=== PATIENT | female | born 1980 ===

== ENCOUNTER 2017-04-28 08:54 | Day surgery (SDC) | payer MEDICAID ==
[2017-04-22 14:22] VITALS: BMI 26.6
[2017-04-28 09:53] LABS: BASO # 0.03 K/mm3 (0.0-2.0); BASO % 0.5 % (0.0-3.0); EOS # 0.3 (0.0-0.7); EOS % 4.4 % (1.5-5.0); GRAN # 3.05 (1.4-6.5); GRAN % 54.1 % (50.0-68.0); HEMATOCRIT 38.9 % (36.0-48.0); LYMPH # 1.9 (1.2-3.4); LYMPH % 32.9 % (22.0-35.0); MEAN CELL VOLUME 94.9 fl (80.0-105.0); MEAN CORPUSCULAR HEMOGLOBIN 31.7 pg (25.0-35.0); MEAN CORPUSCULAR HGB CONC 33.4 g/dl (31.0-37.0); MEAN PLATELET VOLUME 10.8 fl (7.0-11.0); MONO # 0.5 (0.1-0.6); MONO % 8.1 % (1.0-6.0); RED CELL DISTRIBUTION WIDTH 12.5 % (11.5-14.5); WHITE BLOOD COUNT 5.7 10^3/ul (4.5-11.0)
[2017-04-28 10:00] LABS: ALB/GLOB RATIO 1.2 (1.1-1.8); ALKALINE PHOSPHATASE 46 U/L (38-126); ALT/SGPT 38 U/L (7-56); AST/SGOT 31 U/L (14-36); BILIRUBIN,TOTAL 0.6 mg/dL (0.2-1.3); BLOOD UREA NITROGEN 10 mg/dL (7-21); CALCIUM 9.5 mg/dL (8.4-10.5); CARBON DIOXIDE 26 mmol/L (21-33); CHLORIDE 106 mmol/L (98-107); GFR AFRICAN-AMERICAN > 60; GLUCOSE,RANDOM 85 mg/dL (70-110); POTASSIUM 4.1 mmol/L (3.6-5.0); SODIUM 140 mmol/L (132-148); TOTAL PROTEIN 7.6 g/dL (5.8-8.3)
[2017-04-28 10:07] LABS: INR 1.13 (0.93-1.08); PARTIAL THROMBOPLASTIN TIME 32.3 Seconds (25.1-36.5)
[2017-04-28] MEDS ORDERED: Sodium Chloride 0.9% 1,000 ML IV SCH (10:30)
[2017-04-28] MEDS ORDERED: Midazolam 2 MG/2 ML VIAL ONE (10:51)
[2017-04-28] MEDS ORDERED: Propofol 10 mg/ml Inj (20 ML) ONE ×2 (10:51→11:28)
[2017-04-28] MEDS ORDERED: Simethicone 40 mg/0.6 ml Liquid (30 ml) ONE (11:53)
[2017-04-28 12:49] VITALS: BP 112/68; PULSE 51; RESP 16; TEMP 98.4; O2SAT 100
== END 2017-04-28 13:59 | disposition home or self-care (01) ==
LOC: ENDO 08:54
PROVIDERS: ATTEND Internal Medicine
DX: K29.50 Unspecified chronic gastritis without bleeding (principal); K31.9 Disease of stomach and duodenum, unspecified
CPT/HCPCS: 36415; 43236; 43239; 43254; 43259; 80053; 84703; 85025; 85610; 85730; 88305; 88342; J2250; J2704; J3010; J7040 ×2

== ENCOUNTER 2017-04-28 17:32 | Inpatient (IN) | payer MEDICAID ==
[2017-04-28 17:32] VITALS: BMI 26.6
[2017-04-28] MEDS ORDERED: Morphine 4 mg/ml ISec IVP STA (17:54)
[2017-04-28] MEDS ORDERED: Sodium Chloride 0.9% 1,000 ML IV STA (17:55)
--- NOTE | 2017-04-28 18:11 | ED PDOC ---
Arrival/HPI - General Chief Complaint: Abdominal Pain Time Seen by Provider: 04/28/17 17:35 - History of Present Illness Narrative History of Present Illness (Text): 04/28/17 17:50 A 37 year old female, whose past medical history includes AVN, lupus, and gastritis, presents to the emergency department post endoscopy, for epigastric pain and vomiting. The patient reports she has abdominal swelling, epigastric cramping, and has had 3 episodes of vomiting. She denies any dysuria, bloody stools, chest pain, or any other complaints at this time. LMP: 04/08/17 Time/Duration: 4-6 hours Symptom Onset: Other Symptom Course: Unchanged Quality: Cramping, Burning Severity Level: Mild Activities at Onset: Significant (endoscopy) Context: Other (post endoscopy) Past Medical History - Provider Review Nursing Documentation Reviewed: Yes - Infectious Disease Hx of Infectious Diseases: None - Tetanus Immunization Tetanus Immunization: Unknown - Cardiac Hx Pacemaker: No - Pulmonary Hx Respiratory Disorders: No - Neurological Hx Paralysis: No - HEENT Hx HEENT Disorder: No - Renal Hx Renal Disorder: No - Endocrine/Metabolic Hx Endocrine Disorders: Yes Hx Systemic Lupus Erythematosus: Yes Other/Comment: "inflamed thryroid" - Hematological/Oncological Hx Blood Transfusions: No - Integumentary Hx Dermatological Disorder: No - Musculoskeletal/Rheumatological Hx Musculoskeletal Disorders: Yes - Gastrointestinal Hx Gastrointestinal Disorders: Yes Hx Gall Bladder Disease: Yes (gallstones) - Genitourinary/Gynecological Hx Genitourinary Disorders: Yes Hx Cervical Cancer: Yes - Psychiatric Hx Emotional Abuse: No Hx Physical Abuse: No Hx Substance Use: No - Past Surgical History Past Surgical History: No Previous - Surgical History Hx Appendectomy: Yes Hx Cholecystectomy: Yes - Anesthesia Hx Anesthesia Reactions: No Hx Malignant Hyperthermia: No - Suicidal Assessment Feels Threatened In Home Enviroment: No Family/Social History - Physician Review Nursing Documentation Reviewed: Yes Family/Social History: No Known Family HX Smoking Status: Never Smoked Hx Alcohol Use: No Hx Substance Use: No Hx Substance Use Treatment: No Allergies/Home Meds Allergies/Adverse Reactions: Allergies No Known Allergies Allergy (Verified 07/09/16 18:50) Home Medications: Home Meds Medication Instructions Recorded Confirmed Hydroxychloroquine Sulfate 200 mg PO BID 01/08/16 04/28/17 [Plaquenil] Omeprazole 40 mg PO DAILY 04/22/17 04/28/17 Review of Systems - Physician Review All systems were reviewed & negative as marked: Yes - Review of Systems Cardiovascular: absent: Chest Pain Gastrointestinal: Abdominal Pain, Vomiting Genitourinary Female: absent: Dysuria Physical Exam Vital Signs Reviewed: Yes Vital Signs Temp Pulse Resp BP Pulse Ox 04/28/17 17:53 98.2 F 92 H 19 139/95 H 100 04/28/17 17:52 98.2 F 92 H 18 139/95 H 100 Temperature: Afebrile Blood Pressure: Hypertensive Pulse: Tachycardic Respiratory Rate: Normal Appearance: Positive for: Non-Toxic Pain Distress: Moderate Mental Status: Positive for: Alert and Oriented X 3 - Systems Exam Head: Present: Atraumatic, Normocephalic Pupils: Present: PERRL Conjunctiva: Present: Normal Mouth: Present: Moist Mucous Membranes Pharnyx: Present: Normal. No: ERYTHEMA, EXUDATE Neck: Present: Normal Range of Motion Respiratory/Chest: Present: Clear to Auscultation, Good Air Exchange. No: Respiratory Distress, Accessory Muscle Use Cardiovascular: Present: Regular Rate and Rhythm, Normal S1, S2. No: Murmurs Abdomen: Present: Tenderness (mild epigastric tenderness), Distention (mild distention ), Normal Bowel Sounds. No: Peritoneal Signs Back: Present: Normal Inspection Upper Extremity: Present: Normal Inspection. No: Cyanosis, Edema Lower Extremity: Present: Normal Inspection. No: Edema Neurological: Present: GCS=15, CN II-XII Intact, Speech Normal Skin: Present: Warm, Dry, Normal Color. No: Rashes Psychiatric: Present: Alert, Oriented x 3, Normal Insight, Normal Concentration , Anxious Medical Decision Making ED Course and Treatment: 04/28/17 18:18 Impression: A 37 year old female post endoscopy. Differential Diagnosis included but are not limited to: perforation vs gastritis vs gas Plan: -- Ab & Pel CT -- Labs -- Morphine, Zofran, Protonix, IV Fluids -- test -- Urinalysis -- Reassess and disposition Progress Notes: 04/28/17 19:36 Patient with noted history. Labs are nondiagnostic. CT is nondiagnostic with no evidence of perforation. Patient seen by Dr. Lilly in the Emergency department, requiring iv narcotic for pain control. Will observe for abdominal pain on med-surg. Discussed with hospitalist, Dr. Morrison. - Lab Interpretations Lab Results: 04/28/17 18:11 04/28/17 18:11 Lab Results 04/28/17 18:35: Urine Color Yellow, Urine Appearance Clear, Urine pH 6.5, Ur Specific [place] >= 1.030, Urine Protein Trace H, Urine Glucose (UA) Negative, Urine Ketones Negative, Urine Blood Moderate H, Urine Nitrate Negative, Urine Bilirubin Negative, Urine Urobilinogen 0.2, Ur Leukocyte Esterase Negative, Urine RBC 5 - 10, Urine WBC 2 - 5, Ur Epithelial Cells 4 - 5, Urine Bacteria Rare 04/28/17 18:11: Sodium 140, Potassium 3.8, Chloride 103, Carbon Dioxide 28, Anion Gap 13, BUN 10, Creatinine 0.6 L, Est GFR ( Amer) > 60, Est GFR ( Non-Af Amer) > 60, Random Glucose 107, Calcium 9.6, Total Bilirubin 0.6, AST 30 , ALT 41, Alkaline Phosphatase 52, Total Protein 8.0, Albumin 4.4, Globulin 3.6 , Albumin/Globulin Ratio 1.2, Lipase 42 04/28/17 18:11: PT 12.5, INR 1.14 H, APTT 35.2 04/28/17 18:11: WBC 8.7 D, RBC 4.31, Hgb 14.0, Hct 40.8, MCV 94.7, MCH 32.5, MCHC 34.3, RDW 12.3, Plt Count 227, MPV 10.8, Gran % 74.4 H, Lymph % (Auto) 16.4 L, [place] % (Auto) 7.3 H, Eos % (Auto) 1.6, Baso % (Auto) 0.3, Gran # 6.49, Lymph # 1.4, [place] # 0.6, Eos # 0.1, Baso # 0.03 - RAD Interpretation Radiology Orders: 04/28/17 17:48 ABD & PELVIS W/O PO OR IV CONT [CT] Stat - Medication Orders Current Medication Orders: Discontinued Medications Sodium Chloride (Sodium Chloride 0.9%) 1,000 mls @ 999 mls/hr IV .Q1H1M STA Stop: 04/28/17 18:55 Last Admin: 04/28/17 18:19 Dose: 999 mls/hr eMAR Start Stop Document 04/28/17 18:19 MS (Rec: 04/28/17 18:20 MS [id number]) Intravenous Solution Start Date 04/28/17 Start Time 18:19 End Date 04/28/17 End time 19:19 Total Infusion Time 60 Morphine Sulfate (Morphine) 4 mg IVP STAT STA Stop: 04/28/17 17:55 Last Admin: 04/28/17 18:20 Dose: 4 mg MAR Pain Assessment Document 04/28/17 18:20 MS (Rec: 04/28/17 18:21 MS [id number]) Pain Reassessment Is this a pain reassessment? No Sleep Is patient sleeping during reassessment? No Presence of Pain Presence of Pain Yes Pain Scale Used Pain Scale Used Numeric Location Pain Location Body Site Abdomen Description Description Constant Intensity of Pain at present 8 Pain Behavior Moaning Guarding Withdrawal from Touch Refusal to Eat Aggravating Factors Changing Position Alleviating Factors/Management Medication Techniques IVP Administration Document 04/28/17 18:20 MS (Rec: 04/28/17 18:21 MS [id number]) Charges for Administration # of IVP Administrations 1 Ondansetron HCl (Zofran Inj) 4 mg IVP STAT STA Stop: 04/28/17 17:55 Last Admin: 04/28/17 18:21 Dose: 4 mg IVP Administration Document 04/28/17 18:21 MS (Rec: 04/28/17 18:21 MS [id number]) Charges for Administration # of IVP Administrations 1 Pantoprazole Sodium (Protonix Inj) 40 mg IVP STAT STA Stop: 04/28/17 17:55 Last Admin: 04/28/17 18:21 Dose: 40 mg IVP Administration Document 04/28/17 18:21 MS (Rec: 04/28/17 18:21 MS [id number]) Charges for Administration # of IVP Administrations 1 - Scribe Statement The provider has reviewed the documentation as recorded by the Sandy Araiza Provider Scribe Attestation: All medical record entries made by the Scribe were at my direction and personally dictated by me. I have reviewed the chart and agree that the record accurately reflects my personal performance of the history, physical exam, medical decision making, and the department course for this patient. I have also personally directed, reviewed, and agree with the discharge instructions and disposition. Disposition/Present on Arrival - Present on Arrival Any Indicators Present on Arrival: No History of DVT/PE: No History of Uncontrolled Diabetes: No Urinary Catheter: No History of Decub. Ulcer: No History Surgical Site Infection Following: None - Disposition Have Diagnosis and Disposition been Completed?: Yes Diagnosis: Intractable abdominal pain Disposition: HOSPITALIZED Disposition Time: 18:50 Patient Plan: Observation Condition: FAIR Forms: [employer] (Uzbek)
[2017-04-28 18:21] LABS: BASO # 0.03 K/mm3 (0.0-2.0); BASO % 0.3 % (0.0-3.0); EOS # 0.1 (0.0-0.7); EOS % 1.6 % (1.5-5.0); GRAN # 6.49 (1.4-6.5); GRAN % 74.4 % (50.0-68.0); HEMATOCRIT 40.8 % (36.0-48.0); LYMPH # 1.4 (1.2-3.4); LYMPH % 16.4 % (22.0-35.0); MEAN CELL VOLUME 94.7 fl (80.0-105.0); MEAN CORPUSCULAR HEMOGLOBIN 32.5 pg (25.0-35.0); MEAN CORPUSCULAR HGB CONC 34.3 g/dl (31.0-37.0); MEAN PLATELET VOLUME 10.8 fl (7.0-11.0); MONO # 0.6 (0.1-0.6); MONO % 7.3 % (1.0-6.0); RED CELL DISTRIBUTION WIDTH 12.3 % (11.5-14.5); WHITE BLOOD COUNT 8.7 10^3/ul (4.5-11.0)
[2017-04-28 18:34] LABS: ALB/GLOB RATIO 1.2 (1.1-1.8); ALKALINE PHOSPHATASE 52 U/L (38-126); ALT/SGPT 41 U/L (7-56); AST/SGOT 30 U/L (14-36); BILIRUBIN,TOTAL 0.6 mg/dL (0.2-1.3); BLOOD UREA NITROGEN 10 mg/dL (7-21); CALCIUM 9.6 mg/dL (8.4-10.5); CARBON DIOXIDE 28 mmol/L (21-33); CHLORIDE 103 mmol/L (98-107); GFR AFRICAN-AMERICAN > 60; GLUCOSE,RANDOM 107 mg/dL (70-110); INR 1.14 (0.93-1.08); LIPASE 42 U/L (23-300); PARTIAL THROMBOPLASTIN TIME 35.2 Seconds (25.1-36.5); POTASSIUM 3.8 mmol/L (3.6-5.0); SODIUM 140 mmol/L (132-148)
[2017-04-28 18:48] LABS: PH,URINE 6.5 (4.7-8.0); URINE BILIRUBIN NEGATIVE (NEGATIVE); URINE BLOOD MODERATE (NEGATIVE); URINE GLUCOSE (UA) NEGATIVE (NEGATIVE); URINE KETONE NEGATIVE (NEGATIVE); URINE LEUKOCYTE ESTERASE NEGATIVE Leu/uL (NEGATIVE); URINE PROTEIN TRACE mg/dL (<30 mg/dL); URINE UROBILINOGEN 0.2 E.U./dL (<1 E.U./dL)
[2017-04-28 18:50] LABS: URINE APPEARANCE CLEAR (CLEAR); URINE COLOR YELLOW (YELLOW)
--- NOTE | 2017-04-28 18:55 | CT ---
PROCEDURE: CT Abdomen and Pelvis without intravenous contrast HISTORY: abd pain post EGD - r/o perforation COMPARISON: Comparison is made to the previous study dated 01/08/2016 TECHNIQUE: Axial and reformatted coronal and sagittal CT images of the abdomen and pelvis were obtained without IV or oral contrast administration.. Contrast Dose: 0 Radiation dose: Total exam DLP = mGy-cm. This CT exam was performed using one or more of the following dose reduction techniques: Automated exposure control, adjustment of the mA and/or kV according to patient size, and/or use of iterative reconstruction technique. FINDINGS: LOWER THORAX: Unremarkable. LIVER: No evidence of acute pathology in the liver. GALLBLADDER AND BILE DUCTS: Status post cholecystectomy. PANCREAS: Unremarkable. No gross lesion or ductal dilatation. SPLEEN: Unremarkable. ADRENALS: Unremarkable. No mass. KIDNEYS AND URETERS: 2 millimeter calcification noted at the lower pole of the right kidney may represent nonobstructing calculus versus cortical calcification. No hydronephrosis. No solid mass. VASCULATURE: Unremarkable. No aortic aneurysm. BOWEL: Unremarkable. No obstruction. No gross mural thickening. Linear high attenuation noted in the mid to distal stomach likely represent clips from recent biopsy. APPENDIX: Unremarkable. Normal appendix. PERITONEUM: No evidence of free air of free fluid in the abdomen. There is a trace amount of free fluid in the pelvis likely physiological. LYMPH NODES: Unremarkable. No enlarged lymph nodes. BLADDER: Unremarkable. REPRODUCTIVE: The uterus is slightly prominent in size and heterogeneous. BONES: No acute fracture. OTHER FINDINGS: None. IMPRESSION: No evidence of free air in the abdomen and pelvis to suggest bowel perforation. Trace amount of free fluid in the pelvis could be physiological. 2 millimeter nonobstructing calculi versus cortical calcification at the lower pole right kidney.
[2017-04-28 18:58] LABS: URINE BACTERIA RARE (NEG)
--- NOTE | 2017-04-28 19:39 | CP.PCM.CON ---
History of Present Illness - History of Present Illness History of Present Illness: CC: Abdominal pain HPI: 37 year old female who presents with abdominal pain. She underwent EGD/EUS/ EMR today for evaluation of gastric subepithelial nodule. After procedure, she had mild epigastric pain. Her abdominal exam was benign at the time. She received tylenol. She felt a bit better. She ate and was discharged. This afternoon, the pain increased and became more severe, 10/10, with radiation to the back. She also had associated wretching. She denies fever. No bleeding or hematemesis. No chest pain or sob. PMHx Dyspepsia PSHx EGD with EMR Fhx no familiy history of GI cancer SHx non-smoker/drinker/drug user ROS A comprehensive review of systems was performed and was negative apart from HPI Past Patient History - Infectious Disease Hx of Infectious Diseases: None - Tetanus Immunizations Tetanus Immunization: Unknown - Past Social History Smoking Status: Never Smoked - CARDIAC Hx Pacemaker: No - PULMONARY Hx Respiratory Disorders: No - NEUROLOGICAL Hx Paralysis: No - HEENT Hx HEENT Problems: No - RENAL Hx Chronic Kidney Disease: No - ENDOCRINE/METABOLIC Hx Endocrine Disorders: Yes Hx Systemic Lupus Erythematosus: Yes Other/Comment: "inflamed thryroid" - HEMATOLOGICAL/ONCOLOGICAL Hx Blood Transfusions: No - INTEGUMENTARY Hx Dermatological Problems: No - MUSCULOSKELETAL/RHEUMATOLOGICAL Hx Musculoskeletal Disorders: Yes - GASTROINTESTINAL Hx Gastrointestinal Disorders: Yes Hx Gall Bladder Disease: Yes (gallstones) - GENITOURINARY/GYNECOLOGICAL Hx Genitourinary Disorders: Yes Hx Cervical Cancer: Yes - PSYCHIATRIC Hx Emotional Abuse: No Hx Physical Abuse: No Hx Substance Use: No - SURGICAL HISTORY Hx Appendectomy: Yes Hx Cholecystectomy: Yes - ANESTHESIA Hx Anesthesia Reactions: No Hx Malignant Hyperthermia: No Meds Allergies/Adverse Reactions: Allergies Allergy/AdvReac Type Severity Reaction Status Date / Time No Known Allergies Allergy Verified 07/09/16 18:50 Physical Exam - Constitutional Appears: In Acute Distress Additional comments: appears uncomfortable/in pain - Head Exam Head Exam: ATRAUMATIC, NORMOCEPHALIC - Eye Exam Eye Exam: Normal appearance. absent: Scleral icterus Pupil Exam: PERRL - ENT Exam ENT Exam: Mucous Membranes Moist, Normal Oropharynx - Neck Exam Neck exam: Negative for: Lymphadenopathy, Thyromegaly - Respiratory Exam Respiratory Exam: Clear to Auscultation Bilateral, NORMAL BREATHING PATTERN. absent: Rhonchi, Wheezes, Stridor - Cardiovascular Exam Cardiovascular Exam: REGULAR RHYTHM, +S1, +S2 - GI/Abdominal Exam GI & Abdominal Exam: Distended, Soft, Tenderness. absent: Firm, Guarding - Extremities Exam Extremities exam: Positive for: normal capillary refill. Negative for: calf tenderness, pedal edema - Neurological Exam Neurological exam: Alert, Oriented x3 - Psychiatric Exam Psychiatric exam: Normal Affect, Normal Mood - Skin Skin Exam: Dry, Warm Results - Vital Signs Recent Vital Signs: Last Vital Signs Temp 98.2 F 04/28/17 17:53 Pulse 92 H 04/28/17 17:53 Resp 19 04/28/17 17:53 BP 139/95 H 04/28/17 17:53 Pulse Ox 100 04/28/17 17:53 - Labs Result Diagrams: 04/28/17 18:11 04/28/17 18:11 Labs: Laboratory Results - last 24 hr 04/28/17 04/28/17 04/28/17 18:11 18:11 18:11 WBC 8.7 D RBC 4.31 Hgb 14.0 Hct 40.8 MCV 94.7 MCH 32.5 MCHC 34.3 RDW 12.3 Plt Count 227 MPV 10.8 Gran % 74.4 H Lymph % (Auto) 16.4 L [place] % (Auto) 7.3 H Eos % (Auto) 1.6 Baso % (Auto) 0.3 Gran # 6.49 Lymph # 1.4 [place] # 0.6 Eos # 0.1 Baso # 0.03 PT 12.5 INR 1.14 H APTT 35.2 Sodium 140 Potassium 3.8 Chloride 103 Carbon Dioxide 28 Anion Gap 13 BUN 10 Creatinine 0.6 L Est GFR ( Amer) > 60 Est GFR (Non-Af Amer) > 60 Random Glucose 107 Calcium 9.6 Total Bilirubin 0.6 AST 30 ALT 41 Alkaline Phosphatase 52 Total Protein 8.0 Albumin 4.4 Globulin 3.6 Albumin/Globulin Ratio 1.2 Lipase 42 Urine Color Urine Appearance Urine pH Ur Specific [place] Urine Protein Urine Glucose (UA) Urine Ketones Urine Blood Urine Nitrate Urine Bilirubin Urine Urobilinogen Ur Leukocyte Esterase Urine RBC Urine WBC Ur Epithelial Cells Urine Bacteria 04/28/17 18:35 WBC RBC Hgb Hct MCV MCH MCHC RDW Plt Count MPV Gran % Lymph % (Auto) [place] % (Auto) Eos % (Auto) Baso % (Auto) Gran # Lymph # [place] # Eos # Baso # PT INR APTT Sodium Potassium Chloride Carbon Dioxide Anion Gap BUN Creatinine Est GFR ( Amer) Est GFR (Non-Af Amer) Random Glucose Calcium Total Bilirubin AST ALT Alkaline Phosphatase Total Protein Albumin Globulin Albumin/Globulin Ratio Lipase Urine Color Yellow Urine Appearance Clear Urine pH 6.5 Ur Specific [place] >= 1.030 Urine Protein Trace H Urine Glucose (UA) Negative Urine Ketones Negative Urine Blood Moderate H Urine Nitrate Negative Urine Bilirubin Negative Urine Urobilinogen 0.2 Ur Leukocyte Esterase Negative Urine RBC 5 - 10 Urine WBC 2 - 5 Ur Epithelial Cells 4 - 5 Urine Bacteria Rare Assessment & Plan - Assessment and Plan (Free Text) Assessment: 37 year old female with gastric nodule s/p EMR today presenting with abdominal pain. 1. Abdominal pain 2. 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 where a transmural burn from the resection is causing peritoneal irritation -alternatively there could be a microperforation not detected on imaging -the defect was completely close with a resoltion clip during the case and the clip appears to be in place on CT -would recommend admission for monitoring -would start IV antibiotics to cover gram negatives/anaerobes, such as zosyn or ceftriaxone/flagyl -recommend protonix 40 mg IV BID -NPO for now -pain meds with IV morphine -antiemetics as needed -await pathology from procedure, suspect carcinoid tumor -when she is feeling better, would add carafate oral solution 1 g PO QID when she can take liquids, maybe tomorrow -will follow - Date & Time Date: 04/28/17 Time: 19:38
[2017-04-28] MEDS ORDERED: Morphine 4 mg/ml ISec IVP PRN (19:58)
--- NOTE | 2017-04-28 20:43 | CP.PCM.HP ---
<Juwan Martines - Last Filed: 04/28/17 22:46> History of Present Illness - History of Present Illness History of Present Illness: Juwan Martines DO PGY1 - Internal Medicine H&P CC: Abdominal pain HPI: 37 yo F with PMH lupus, AVN right hip, cervical dysplasia s/p conization, gastric ulcers, gastric nodule s/p EUS and endoscopic mucosal resection earlier today presents complaining of epigastric pain radiating to mid back. Earlier today, she had EGD, EUS, and mucosal resection biopsy of a gastric nodule, with placement of one endoclip for hemostasis. After the procedure, she had some mild abdominal pain, which improved slightly with Tylenol. She was able to eat a bread roll before she went home, without any worsening abdominal pain, nausea , or vomiting. When she got home, she tried to drink some water and then developed a sharp epigastric pain radiating to her mid back, 10/10 in severity, lasting 3-4 seconds, occuring every few minutes, worsened with movement, without any particular remitting factors. She reports that she has had this pain before, since before July of this year, though not as severe. Of note, in July, patient reports having had an EGD which showed ulceration, for which she completed a course of "1-2 weeks of medicine". She was also given a PPI which she has been taking, but only for the past couple weeks. Currently, she reports no change in her abdominal pain since it began; she did have one episode of nausea/vomiting NBNB after the onset of the pain, when she tried to drink water. She endorses hunger/a normal appetite, but is worried about eating anything, denies nausea, diarrhea, constipation, hematemesis, hemoptysis, melena , fevers, chills. She did have one normal, formed bowel movement since the procedure today. 12 point ROS negative except as in HPI PMH: Lupus (2013), cervical dysplasia (2004), Gastric ulcers (07/2016), ANV right hip PSH: Cholecystectomy, Colposcopy with conization (2004) FHx: Lung CA in grandfather, Breast CA in grandmother, DM in both parents Soc: Prior smoker, quit 6 years ago, 2 PYH; denies alcohol or illicits All: NKDA Present on Admission - Present on Admission Any Indicators Present on Admission: No Past Patient History - Infectious Disease Hx of Infectious Diseases: None - Tetanus Immunizations Tetanus Immunization: Unknown - Past Social History Smoking Status: Never Smoked - CARDIAC Hx Pacemaker: No - PULMONARY Hx Respiratory Disorders: No - NEUROLOGICAL Hx Paralysis: No - HEENT Hx HEENT Problems: No - RENAL Hx Chronic Kidney Disease: No - ENDOCRINE/METABOLIC Hx Endocrine Disorders: Yes Hx Systemic Lupus Erythematosus: Yes Other/Comment: "inflamed thryroid" - HEMATOLOGICAL/ONCOLOGICAL Hx Blood Transfusions: No - INTEGUMENTARY Hx Dermatological Problems: No - MUSCULOSKELETAL/RHEUMATOLOGICAL Hx Musculoskeletal Disorders: Yes - GASTROINTESTINAL Hx Gastrointestinal Disorders: Yes Hx Gall Bladder Disease: Yes (gallstones) - GENITOURINARY/GYNECOLOGICAL Hx Genitourinary Disorders: Yes Hx Cervical Cancer: Yes - PSYCHIATRIC Hx Emotional Abuse: No Hx Physical Abuse: No Hx Substance Use: No - SURGICAL HISTORY Hx Appendectomy: Yes Hx Cholecystectomy: Yes - ANESTHESIA Hx Anesthesia Reactions: No Hx Malignant Hyperthermia: No Meds Allergies/Adverse Reactions: Allergies Allergy/AdvReac Type Severity Reaction Status Date / Time No Known Allergies Allergy Verified 07/09/16 18:50 Physical Exam - Constitutional Appears: Non-toxic, In Acute Distress (mild) - Head Exam Head Exam: ATRAUMATIC, NORMOCEPHALIC - Eye Exam Eye Exam: EOMI, Normal appearance. absent: Scleral icterus Additional comments: No conjunctival pallor - ENT Exam ENT Exam: Mucous Membranes Moist - Neck Exam Neck exam: Positive for: Normal Inspection - Respiratory Exam Respiratory Exam: Clear to Auscultation Bilateral, NORMAL BREATHING PATTERN - Cardiovascular Exam Cardiovascular Exam: REGULAR RHYTHM, +S1, +S2 - GI/Abdominal Exam GI & Abdominal Exam: Guarding, Normal Bowel Sounds, Soft, Tenderness (Epigastric , RUQ, LUQ). absent: Distended, Firm, Organomegaly, Rebound, Rigid - Extremities Exam Extremities exam: Negative for: calf tenderness, pedal edema - Back Exam Back exam: NORMAL INSPECTION. absent: CVA tenderness (L), CVA tenderness (R), muscle spasm, paraspinal tenderness, tenderness, vertebral tenderness - Neurological Exam Neurological exam: Alert, Oriented x3 - Psychiatric Exam Psychiatric exam: Normal Affect, Normal Mood - Skin Skin Exam: Dry, Intact, Normal Color Results - Vital Signs Recent Vital Signs: Last Vital Signs Temp 98.2 F 04/28/17 17:53 Pulse 92 H 04/28/17 17:53 Resp 19 04/28/17 17:53 BP 139/95 H 04/28/17 17:53 Pulse Ox 100 04/28/17 17:53 - Labs Result Diagrams: 04/28/17 18:11 04/28/17 18:11 Assessment & Plan - Assessment and Plan (Free Text) Assessment: 37 yo F with PMH lupus, AVN R hip, cervical dysplasia s/p conization, gastric ulcers, gastric nodule s/p EUS and endoscopic mucosal resection earlier today presents complaining of epigastric pain radiating to mid back. Plan: 1. Abdominal pain - Likely secondary to "post-polypectomy electrocoagulation type syndrome" per GI , vs microperforation - CT A/P in ER does not show any free air, hemostatic clip in place, with trace free fluid in pelvis - Currently, VSS, H/H stable compared to preoperatively today; no signs of active bleeding - Abdominal exam significant for epigastric tenderness without rebound; no peritoneal signs - Continue Zosyn as ordered by GI for broad spectrum and anaerobic coverage in setting of possible perforation - Continue PPI IV BID - Zofran PRN for nausea - Morphine 2mg IV Q2h PRN for pain - Ordered one time dose of Carafate, will order PO solution QID if patient tolerates - NPO except for meds - LR @ 150cc/hr - Serial abdominal exams - Ordered troponin and EKG to r/o atypical presentation of ACS in female with PMH of Lupus - GI (Terry) on consult, appreciate recs 2. h/o Lupus - Continue home plaquinil - No signs of active flare PPx: SCDs for DVT, patient is on protonix for possible perforation Patient discussed and reviewed with attending <Too Morrison - Last Filed: 04/28/17 22:58> Results - Vital Signs Recent Vital Signs: Last Vital Signs Temp 98.2 F 04/28/17 17:53 Pulse 92 H 04/28/17 17:53 Resp 19 04/28/17 17:53 BP 139/95 H 04/28/17 17:53 Pulse Ox 100 04/28/17 17:53 - Labs Result Diagrams: 04/28/17 18:11 04/28/17 18:11 Attending/Attestation - Attestation I have personally seen and examined this patient.: Yes I have fully participated in the care of the patient.: Yes I have reviewed all pertinent clinical information: Yes Notes (Text): 04/28/17 22:55 Patient was seen when she was in room # 15 in the ER. Agree with history, physical examination, assessment and plan.
[2017-04-28] MEDS: Lactated Ringer's 1,000 ML IV SCH (21:46)
[2017-04-28] MEDS: Morphine 2 mg/ml ISec IVP PRN (22:24)
[2017-04-28] MEDS ORDERED: Influenza Vaccine 60 mcg/0.5 mL SYR (4YR UP) IM ONE (23:47)
[2017-04-29] MEDS: Piperacillin/Tazobact 3.375 gm 100 ML IVPB SCH ×2 (00:22→05:39)
[2017-04-29] MEDS ORDERED: Morphine 2 mg/ml ISec IVP STA (01:37)
[2017-04-29] MEDS: Morphine 2 mg/ml ISec IVP PRN (03:25)
[2017-04-29] MEDS: Lactated Ringer's 1,000 ML IV SCH ×3 (05:00→23:10)
[2017-04-29] MEDS: Morphine 4 mg/ml ISec IVP PRN ×2 (05:56→10:20)
[2017-04-29 06:26] LABS: BASO # 0.02 K/mm3 (0.0-2.0); BASO % 0.2 % (0.0-3.0); EOS # 0.1 (0.0-0.7); EOS % 1.4 % (1.5-5.0); GRAN # 5.92 (1.4-6.5); GRAN % 70.2 % (50.0-68.0); HEMATOCRIT 35.2 % (36.0-48.0); LYMPH # 1.6 (1.2-3.4); LYMPH % 18.8 % (22.0-35.0); MEAN CELL VOLUME 94.9 fl (80.0-105.0); MEAN CORPUSCULAR HEMOGLOBIN 31.3 pg (25.0-35.0); MEAN PLATELET VOLUME 10.8 fl (7.0-11.0); MONO # 0.8 (0.1-0.6); MONO % 9.4 % (1.0-6.0); RED CELL DISTRIBUTION WIDTH 12.5 % (11.5-14.5); WHITE BLOOD COUNT 8.4 10^3/ul (4.5-11.0)
[2017-04-29 07:01] LABS: ALB/GLOB RATIO 1.2 (1.1-1.8); ALKALINE PHOSPHATASE 50 U/L (38-126); ALT/SGPT 177 U/L (7-56); AST/SGOT 193 U/L (14-36); BLOOD UREA NITROGEN 7 mg/dL (7-21); CALCIUM 8.7 mg/dL (8.4-10.5); CARBON DIOXIDE 29 mmol/L (21-33); CHLORIDE 104 mmol/L (98-107); GFR AFRICAN-AMERICAN > 60; GLUCOSE,RANDOM 77 mg/dL (70-110); MAGNESIUM 1.5 mg/dL (1.7-2.2); PHOSPHOROUS 3.9 mg/dL (2.5-4.5); POTASSIUM 3.5 mmol/L (3.6-5.0); SODIUM 140 mmol/L (132-148); TOTAL PROTEIN 6.2 g/dL (5.8-8.3)
[2017-04-29] MEDS ORDERED: Magnesium Sulfate 2 GM in Sodium Chloride 0.9% 100 ML IVPB ONE (07:16)
--- NOTE | 2017-04-29 07:50 | CP.PCM.PN ---
<Eladio Nance - Last Filed: 04/29/17 12:59> Subjective - Date & Time of Evaluation Date of Evaluation: 04/29/17 Time of Evaluation: 06:50 - Subjective Subjective: Eladio Nance D.O. PGY-2, GI Progress Note 37 year old female with a PMH of lupus who presented with abdominal pain S/p EGD /EUS/EMR for gastric subepithelial nodule. Patient was seen and examined at bedside. Patient states that since her episode of vomiting yesterday she has not had any more but did have some nausea. Patient states that the pain has also improved since her last dose of pain medications but every now still has some return. Describes the pain as 10/10, cramping and intermittent and located in the epigastrium. At this time patient has no other acute complaints. Objective - Vital Signs/Intake and Output Vital Signs (last 24 hours): Temp Pulse Resp BP Pulse Ox 98.9 F 63 18 114/70 100 04/28/17 23:03 04/28/17 23:03 04/28/17 23:03 04/28/17 23:03 04/28/17 17:53 Intake and Output: 04/29/17 04/29/17 06:59 18:59 Intake Total 1400 Balance 1400 - Medications Medications: Current Medications Hydroxychloroquine Sulfate (Plaquenil) 200 mg PO BID [facility] Lactated Ringer's (Lactated Ringer's) 1,000 mls @ 150 mls/hr IV .Q6H40M [facility] Last Admin: 04/29/17 05:00 Dose: 150 mls/hr Potassium Chloride (Potassium Chloride 10 Meq/100 Ml) 10 meq in 100 mls @ 100 mls/hr IVPB Q2H [facility] Stop: 04/29/17 10:14 Magnesium Sulfate 2 gm/ Sodium (Chloride) 104 mls @ 102 mls/hr IVPB ONCE ONE Stop: 04/29/17 08:17 Metronidazole (Flagyl) 500 mg in 100 mls @ 100 mls/hr IVPB Q8 [facility] PRN Reason: Protocol Ceftriaxone Sodium (Rocephin 1 Gram Ivpb) 1 gm in 100 mls @ 100 mls/hr IVPB DAILY [facility] PRN Reason: Protocol Morphine Sulfate (Morphine) 4 mg IVP Q4H PRN PRN Reason: Pain, severe (8-10) Last Admin: 04/29/17 05:56 Dose: 4 mg Ondansetron HCl (Zofran Inj) 4 mg IVP Q6H PRN PRN Reason: Nausea/Vomiting Pantoprazole Sodium (Protonix Inj) 40 mg IVP Q12 [facility] Last Admin: 04/29/17 00:20 Dose: 40 mg - Labs Labs: 04/29/17 06:00 04/29/17 06:00 PT 12.5 SECONDS (9.4-12.5) 04/28/17 18:11 INR 1.14 (0.93-1.08) H 04/28/17 18:11 APTT 35.2 Seconds (25.1-36.5) 04/28/17 18:11 - Constitutional Appears: Non-toxic, No Acute Distress - Head Exam Head Exam: ATRAUMATIC, NORMOCEPHALIC - Eye Exam Eye Exam: EOMI, PERRL. absent: Scleral icterus - ENT Exam ENT Exam: Mucous Membranes Moist, Normal Oropharynx - Neck Exam Neck Exam: Normal Inspection. absent: Tenderness - Respiratory Exam Respiratory Exam: Clear to Ausculation Bilateral. absent: Accessory Muscle Use - Cardiovascular Exam Cardiovascular Exam: RRR, +S1, +S2 - GI/Abdominal Exam GI & Abdominal Exam: Soft, Tenderness (mild epigastric), Normal Bowel Sounds. absent: Distended, Firm, Guarding - Extremities Exam Extremities Exam: absent: Calf Tenderness, Tenderness - Neurological Exam Neurological Exam: Alert, Awake, Oriented x3 - Skin Skin Exam: Dry, Warm Assessment and Plan - Assessment and Plan (Free Text) Assessment: 37 year old female who presented with abdominal pain S/p EGD/EUS/EMR for gastric subepithelial nodule, POD#1 Plan: 1. Abdominal pain 2. Subepithelial gastric nodule 3. 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 Patient to see us in the GI clinic in 1 weeks time. Script for repeat CMP given to patient. Thank you for the pleasure of participating in the care of this patient. <Ramonita Valente MD - Last Filed: 04/29/17 14:26> Objective - Vital Signs/Intake and Output Vital Signs (last 24 hours): Temp Pulse Resp BP Pulse Ox 98.7 F 68 18 105/60 98 04/29/17 06:00 04/29/17 06:00 04/29/17 06:00 04/29/17 06:00 04/29/17 06:00 - Medications Medications: Current Medications Hydroxychloroquine Sulfate (Plaquenil) 200 mg PO BID [facility] Last Admin: 04/29/17 10:21 Dose: 200 mg Lactated Ringer's (Lactated Ringer's) 1,000 mls @ 150 mls/hr IV .Q6H40M [facility] Last Admin: 04/29/17 05:00 Dose: 150 mls/hr Metronidazole (Flagyl) 500 mg in 100 mls @ 100 mls/hr IVPB Q8 [facility] PRN Reason: Protocol Last Admin: 04/29/17 14:01 Dose: Not Given Levofloxacin/Dextrose (Levaquin 500mg) 500 mg in 100 mls @ 100 mls/hr IVPB DAILY [facility] Morphine Sulfate (Morphine) 4 mg IVP Q4H PRN PRN Reason: Pain, severe (8-10) Last Admin: 04/29/17 10:20 Dose: 4 mg Ondansetron HCl (Zofran Inj) 4 mg IVP Q6H PRN PRN Reason: Nausea/Vomiting Last Admin: 04/29/17 11:05 Dose: 4 mg Pantoprazole Sodium (Protonix Inj) 40 mg IVP Q12 [facility] Last Admin: 04/29/17 10:20 Dose: 40 mg Sucralfate (Carafate Oral Susp) 1 gm PO 0630,1130,1630,2200 [facility] Last Admin: 04/29/17 11:32 Dose: Not Given - Labs Labs: PT 12.5 SECONDS (9.4-12.5) 04/28/17 18:11 INR 1.14 (0.93-1.08) H 04/28/17 18:11 APTT 35.2 Seconds (25.1-36.5) 04/28/17 18:11 Attending/Attestation - Attestation I have personally seen and examined this patient.: Yes I have fully participated in the care of the patient.: Yes I have reviewed all pertinent clinical information, including history, physical exam and plan: Yes Notes (Text): 04/29/17 14:24 Patient seen with resident and fellow on rounds. This is a 37 year old female who presented with abdominal pain S/p EGD/EUS/EMR for gastric subepithelial nodule. Post procedure complained of abdominal pain, admitted for observation. No s/s of perforation either on imaging or biochemically. Will need to continue levaquin/metronidazole for 5 days PO, can continue protonix BID as well as carafate QID. Patient to see in the GI clinic in 1 weeks time. Script for repeat CMP given to patient. Can be discharged today after diet is tolerated.
[2017-04-29] MEDS ORDERED: cefTRIAXone 1 gm 1 GM/100 ML BAG IVPB SCH (10:00)
[2017-04-29] MEDS ORDERED: Sucralfate 1 gm/10 ml Oral Susp UD PO SCH (11:30)
[2017-04-29] MEDS: Sucralfate 1 gm/10 ml Oral Susp UD PO SCH ×3 (11:32→21:31)
--- NOTE | 2017-04-29 11:42 | CP.PCM.PN ---
<Chaitanya Stratton - Last Filed: 04/29/17 11:20> Subjective - Date & Time of Evaluation Date of Evaluation: 04/29/17 Time of Evaluation: 10:30 - Subjective Subjective: Subjective: Patient seen and examined at bedside. Resting comfortably in bed. No acute overnight since admission. Patient states abdominal pain has improved relative to baseline. Admits to nausea but no emesis. Positive for appetite. Offers no new complaints at this time. Denies fever, chills, chest pain, shortness of breath, diarrhea, constipation, and urinary symptoms. Physical Examination: - Constitutional Appears: Non-toxic, No Acute Distress - Head Exam Head Exam: ATRAUMATIC, NORMOCEPHALIC - Eye Exam Eye Exam: EOMI, PERRL. absent: Scleral icterus - ENT Exam ENT Exam: Mucous Membranes Moist, Normal Oropharynx - Neck Exam Neck Exam: Normal Inspection. absent: Tenderness - Respiratory Exam Respiratory Exam: Clear to Ausculation Bilateral. absent: Accessory Muscle Use - Cardiovascular Exam Cardiovascular Exam: RRR, +S1, +S2 - GI/Abdominal Exam GI & Abdominal Exam: Soft, Tenderness (mild epigastric), Normal Bowel Sounds. absent: Distended, Firm, Guarding - Extremities Exam Extremities Exam: absent: Calf Tenderness, Tenderness - Neurological Exam Neurological Exam: Patient is awake, alert, responds to verbal stimuli, answers questions appropriately, follows commands, and moves extremities past midline - Skin Skin Exam: Dry, Warm Assessment and Plan: Patient is a 37 year old female who was admitted for evaluation and treatment of abdominal pain s/p EGD/EUS/EMR for gastric subepithelial nodule, POD#1 Abdominal pain - CT abd and pelvis reviewed and appreciated- no evidence of free air - as per GI there is a possible postpolypectomy electrocoagulation type syndrome - keep patient NPO except for meds, advance diet if the patient is willing - Antiemetics PRN - pain control with morphine - patient started on carafate as per GI - continue levaquin and flagyl - GI consulted- appreciate recommendations Gastric Nodule - Pending pathology for nodule - GI consulted- appreciate recommendations Transaminitis - Autoimmune panel ordered - Hepatitis panel and HIV panel Anemia - Hgbs trended, reviewed, and appreciated, will continue to monitor closely via CBC, likely due to LR - iron, TIBC, % saturation reviewed and appreciated Prophylaxis - SCDs - protonix Patient seen, case discussed with, and plan approved by attending physician, Dr. Lopez. Objective - Vital Signs/Intake and Output Vital Signs (last 24 hours): Temp Pulse Resp BP Pulse Ox 98.7 F 68 18 105/60 98 04/29/17 06:00 04/29/17 06:00 04/29/17 06:00 04/29/17 06:00 04/29/17 06:00 Intake and Output: 04/29/17 04/29/17 06:59 18:59 Intake Total 1400 Balance 1400 - Medications Medications: Current Medications Hydroxychloroquine Sulfate (Plaquenil) 200 mg PO BID [facility] Last Admin: 04/29/17 10:21 Dose: 200 mg Lactated Ringer's (Lactated Ringer's) 1,000 mls @ 150 mls/hr IV .Q6H40M [facility] Last Admin: 04/29/17 05:00 Dose: 150 mls/hr Metronidazole (Flagyl) 500 mg in 100 mls @ 100 mls/hr IVPB Q8 [facility] PRN Reason: Protocol Levofloxacin/Dextrose (Levaquin 500mg) 500 mg in 100 mls @ 100 mls/hr IVPB DAILY [facility] Morphine Sulfate (Morphine) 4 mg IVP Q4H PRN PRN Reason: Pain, severe (8-10) Last Admin: 04/29/17 10:20 Dose: 4 mg Ondansetron HCl (Zofran Inj) 4 mg IVP Q6H PRN PRN Reason: Nausea/Vomiting Last Admin: 04/29/17 11:05 Dose: 4 mg Pantoprazole Sodium (Protonix Inj) 40 mg IVP Q12 [facility] Last Admin: 04/29/17 10:20 Dose: 40 mg Sucralfate (Carafate Oral Susp) 1 gm PO 0630,1130,1630,2200 [facility] - Labs Labs: 04/29/17 06:00 04/29/17 06:00 PT 12.5 SECONDS (9.4-12.5) 04/28/17 18:11 INR 1.14 (0.93-1.08) H 04/28/17 18:11 APTT 35.2 Seconds (25.1-36.5) 04/28/17 18:11 <Reddy Lopez - Last Filed: 04/29/17 12:41> Objective - Vital Signs/Intake and Output Vital Signs (last 24 hours): Temp Pulse Resp BP Pulse Ox 98.7 F 68 18 105/60 98 04/29/17 06:00 04/29/17 06:00 04/29/17 06:00 04/29/17 06:00 04/29/17 06:00 Intake and Output: 04/29/17 04/29/17 06:59 18:59 Intake Total 1400 Balance 1400 - Medications Medications: Current Medications Hydroxychloroquine Sulfate (Plaquenil) 200 mg PO BID [facility] Last Admin: 04/29/17 10:21 Dose: 200 mg Lactated Ringer's (Lactated Ringer's) 1,000 mls @ 150 mls/hr IV .Q6H40M [facility] Last Admin: 04/29/17 05:00 Dose: 150 mls/hr Metronidazole (Flagyl) 500 mg in 100 mls @ 100 mls/hr IVPB Q8 [facility] PRN Reason: Protocol Last Admin: 04/29/17 11:55 Dose: 100 mls/hr Levofloxacin/Dextrose (Levaquin 500mg) 500 mg in 100 mls @ 100 mls/hr IVPB DAILY [facility] Morphine Sulfate (Morphine) 4 mg IVP Q4H PRN PRN Reason: Pain, severe (8-10) Last Admin: 04/29/17 10:20 Dose: 4 mg Ondansetron HCl (Zofran Inj) 4 mg IVP Q6H PRN PRN Reason: Nausea/Vomiting Last Admin: 04/29/17 11:05 Dose: 4 mg Pantoprazole Sodium (Protonix Inj) 40 mg IVP Q12 [facility] Last Admin: 04/29/17 10:20 Dose: 40 mg Sucralfate (Carafate Oral Susp) 1 gm PO 0630,1130,1630,2200 [facility] Last Admin: 04/29/17 11:32 Dose: Not Given - Labs Labs: 04/29/17 06:00 04/29/17 06:00 PT 12.5 SECONDS (9.4-12.5) 04/28/17 18:11 INR 1.14 (0.93-1.08) H 04/28/17 18:11 APTT 35.2 Seconds (25.1-36.5) 04/28/17 18:11 Attending/Attestation - Attestation I have personally seen and examined this patient.: Yes I have fully participated in the care of the patient.: Yes I have reviewed all pertinent clinical information, including history, physical exam and plan: Yes Notes (Text): 04/29/17 12:35 37 year old female with past medical history of SLE who had a recent EGD/EUS/ EMR for gastric subepithelial nodule who presented with abdominal pain. CT abd/pelvis was reviewed as above. She is being followed by GI. Currently NPO on iv fluids, analgesics, protonix, carafate and antibiotics. Will follow up on gastric nodule pathology and with GI recommendations. Possible advancement of diet later today per GI. LFTs are elevated and hepatitis panel and autoimmune panel was ordered. Will monitor LFTs. Anemia is likely dilutional; will monitor. Will replete and repeat lytes. Reddy Lopez MD Hospitalist.
[2017-04-29] MEDS: metroNIDAZOLE IV 500 mg/100 ml 500 MG/100 ML BAG IVPB SCH ×3 (11:55→21:31)
[2017-04-29] MEDS: levoFLOXacin 500 mg in D5W 500 MG/100 ML BAG IVPB SCH (14:18)
[2017-04-30] MEDS: Morphine 4 mg/ml ISec IVP PRN (00:44)
[2017-04-30] MEDS: metroNIDAZOLE IV 500 mg/100 ml 500 MG/100 ML BAG IVPB SCH ×3 (05:38→21:37)
[2017-04-30] MEDS: Sucralfate 1 gm/10 ml Oral Susp UD PO SCH ×4 (05:38→21:37)
[2017-04-30] MEDS: Lactated Ringer's 1,000 ML IV SCH (05:38)
[2017-04-30] MEDS: Morphine 5 MG/ML SYRINGE IVP PRN ×2 (05:40→09:36)
[2017-04-30 07:26] LABS: ALB/GLOB RATIO 1.1 (1.1-1.8); ALKALINE PHOSPHATASE 51 U/L (38-126); ALT/SGPT 226 U/L (7-56); AST/SGOT 111 U/L (14-36); BILIRUBIN,TOTAL 0.9 mg/dL (0.2-1.3); BLOOD UREA NITROGEN 5 mg/dL (7-21); CALCIUM 8.7 mg/dL (8.4-10.5); CARBON DIOXIDE 31 mmol/L (21-33); CHLORIDE 105 mmol/L (98-107); GFR AFRICAN-AMERICAN > 60; GLUCOSE,RANDOM 87 mg/dL (70-110); POTASSIUM 3.8 mmol/L (3.6-5.0); SODIUM 140 mmol/L (132-148); TOTAL PROTEIN 6.4 g/dL (5.8-8.3)
[2017-04-30 07:39] LABS: BASO # 0.02 K/mm3 (0.0-2.0); BASO % 0.3 % (0.0-3.0); EOS # 0.2 (0.0-0.7); EOS % 3.3 % (1.5-5.0); GRAN # 3.99 (1.4-6.5); GRAN % 59.4 % (50.0-68.0); HEMATOCRIT 35.4 % (36.0-48.0); LYMPH # 1.8 (1.2-3.4); LYMPH % 26.6 % (22.0-35.0); MEAN CELL VOLUME 95.4 fl (80.0-105.0); MEAN CORPUSCULAR HGB CONC 32.5 g/dl (31.0-37.0); MEAN PLATELET VOLUME 11.1 fl (7.0-11.0); MONO # 0.7 (0.1-0.6); MONO % 10.4 % (1.0-6.0); RED CELL DISTRIBUTION WIDTH 12.5 % (11.5-14.5); WHITE BLOOD COUNT 6.7 10^3/ul (4.5-11.0)
[2017-04-30] MEDS: levoFLOXacin 500 mg in D5W 500 MG/100 ML BAG IVPB SCH (09:08)
[2017-04-30] MEDS ORDERED: Morphine 2 mg/ml ISec IVP PRN (10:30)
[2017-04-30] MEDS: Morphine 2 mg/ml ISec IVP PRN ×2 (15:03→21:58)
--- NOTE | 2017-04-30 16:57 | CP.PCM.PN ---
<Jaleel Cho - Last Filed: 04/30/17 16:57> Subjective - Date & Time of Evaluation Date of Evaluation: 04/30/17 Time of Evaluation: 08:00 - Subjective Subjective: Patient seen and examined at bedside. Patient is tolerating full liquid diet and altered hepatic diet. Patient reports subjective nausea, no vomiting or diarrhea. Patient is fairly evasive. Objective - Vital Signs/Intake and Output Vital Signs (last 24 hours): Temp Pulse Resp BP Pulse Ox 98.7 F 74 18 105/67 98 04/30/17 06:00 04/30/17 06:00 04/30/17 06:00 04/30/17 06:00 04/30/17 06:00 Intake and Output: 04/30/17 04/30/17 06:59 18:59 Intake Total 3600 600 Balance 3600 600 - Medications Medications: Current Medications Hydroxychloroquine Sulfate (Plaquenil) 200 mg PO BID [facility] Last Admin: 04/30/17 09:08 Dose: 200 mg Lactated Ringer's (Lactated Ringer's) 1,000 mls @ 150 mls/hr IV .Q6H40M [facility] Last Admin: 04/30/17 05:38 Dose: 150 mls/hr Metronidazole (Flagyl) 500 mg in 100 mls @ 100 mls/hr IVPB Q8 [facility] PRN Reason: Protocol Last Admin: 04/30/17 14:54 Dose: 100 mls/hr Levofloxacin/Dextrose (Levaquin 500mg) 500 mg in 100 mls @ 100 mls/hr IVPB DAILY [facility] Last Admin: 04/30/17 09:08 Dose: 100 mls/hr Ibuprofen (Motrin Tab) 600 mg PO Q6H PRN PRN Reason: Pain, moderate (4-7) Last Admin: 04/30/17 12:36 Dose: 600 mg Morphine Sulfate (Morphine) 1 mg IVP Q6H PRN PRN Reason: Pain, severe (8-10) Last Admin: 04/30/17 15:03 Dose: 1 mg Ondansetron HCl (Zofran Inj) 4 mg IVP Q6H PRN PRN Reason: Nausea/Vomiting Last Admin: 04/30/17 11:35 Dose: 4 mg Pantoprazole Sodium (Protonix Inj) 40 mg IVP Q12 [facility] Last Admin: 04/30/17 09:07 Dose: 40 mg Sucralfate (Carafate Oral Susp) 1 gm PO 0630,1130,1630,2200 [facility] Last Admin: 04/30/17 11:35 Dose: 1 gm - Labs Labs: 04/30/17 06:20 04/30/17 06:20 PT 12.5 SECONDS (9.4-12.5) 04/28/17 18:11 INR 1.14 (0.93-1.08) H 04/28/17 18:11 APTT 35.2 Seconds (25.1-36.5) 04/28/17 18:11 - Constitutional Appears: Well, No Acute Distress - Head Exam Head Exam: ATRAUMATIC, NORMOCEPHALIC - Eye Exam Eye Exam: EOMI, Normal appearance, PERRL - ENT Exam ENT Exam: Mucous Membranes Moist, Normal Oropharynx - Neck Exam Neck Exam: Full ROM, Normal Inspection - Respiratory Exam Respiratory Exam: Clear to Ausculation Bilateral, NORMAL BREATHING PATTERN - Cardiovascular Exam Cardiovascular Exam: RRR, +S1, +S2 - GI/Abdominal Exam GI & Abdominal Exam: Soft, Normal Bowel Sounds. absent: Rebound - Extremities Exam Extremities Exam: Normal Capillary Refill, Normal Inspection - Back Exam Back Exam: NORMAL INSPECTION. absent: CVA tenderness (L), CVA tenderness (R) - Neurological Exam Neurological Exam: Alert, Awake, CN II-XII Intact - Psychiatric Exam Psychiatric exam: Normal Affect, Normal Mood - Skin Skin Exam: Dry, Intact, Normal Color, Warm Assessment and Plan - Assessment and Plan (Free Text) Assessment: Assessment and Plan: Patient is a 37 year old female who was admitted for evaluation and treatment of abdominal pain s/p EGD/EUS/EMR for gastric subepithelial nodule, POD#2 Abdominal pain - CT abd and pelvis reviewed and appreciated- no evidence of free air - as per GI there is a possible postpolypectomy electrocoagulation type syndrome - keep patient NPO except for meds, advance diet if the patient is willing - Antiemetics PRN - pain control with morphine - patient started on carafate as per GI - continue levaquin and flagyl - GI consulted- appreciate recommendations Gastric Nodule - Pending pathology for nodule - GI consulted- appreciate recommendations Transaminitis - Autoimmune panel ordered - Hepatitis panel and HIV panel Anemia - Hgbs trended, reviewed, and appreciated, will continue to monitor closely via CBC, likely due to LR - iron, TIBC, % saturation reviewed and appreciated Prophylaxis - SCDs - protonix Patient seen, case discussed with, and plan approved by attending physician, Dr. Lopez. <Reddy Lopez - Last Filed: 04/30/17 21:45> Objective - Vital Signs/Intake and Output Vital Signs (last 24 hours): Temp Pulse Resp BP Pulse Ox 98.3 F 75 19 104/63 97 04/30/17 16:00 04/30/17 16:00 04/30/17 16:00 04/30/17 16:00 04/30/17 16:00 Intake and Output: 04/30/17 05/01/17 18:59 06:59 Intake Total 600 Balance 600 - Medications Medications: Current Medications Hydroxychloroquine Sulfate (Plaquenil) 200 mg PO BID [facility] Last Admin: 04/30/17 17:38 Dose: 200 mg Lactated Ringer's (Lactated Ringer's) 1,000 mls @ 150 mls/hr IV .Q6H40M [facility] Last Admin: 04/30/17 05:38 Dose: 150 mls/hr Metronidazole (Flagyl) 500 mg in 100 mls @ 100 mls/hr IVPB Q8 [facility] PRN Reason: Protocol Last Admin: 04/30/17 14:54 Dose: 100 mls/hr Levofloxacin/Dextrose (Levaquin 500mg) 500 mg in 100 mls @ 100 mls/hr IVPB DAILY [facility] Last Admin: 04/30/17 09:08 Dose: 100 mls/hr Ibuprofen (Motrin Tab) 600 mg PO Q6H PRN PRN Reason: Pain, moderate (4-7) Last Admin: 04/30/17 12:36 Dose: 600 mg Morphine Sulfate (Morphine) 1 mg IVP Q6H PRN PRN Reason: Pain, severe (8-10) Last Admin: 04/30/17 15:03 Dose: 1 mg Ondansetron HCl (Zofran Inj) 4 mg IVP Q6H PRN PRN Reason: Nausea/Vomiting Last Admin: 04/30/17 11:35 Dose: 4 mg Pantoprazole Sodium (Protonix Inj) 40 mg IVP Q12 [facility] Last Admin: 04/30/17 09:07 Dose: 40 mg Sucralfate (Carafate Oral Susp) 1 gm PO 0630,1130,1630,2200 [facility] Last Admin: 04/30/17 17:37 Dose: 1 gm - Labs Labs: 04/30/17 06:20 04/30/17 06:20 PT 12.5 SECONDS (9.4-12.5) 04/28/17 18:11 INR 1.14 (0.93-1.08) H 04/28/17 18:11 APTT 35.2 Seconds (25.1-36.5) 04/28/17 18:11 Attending/Attestation - Attestation I have personally seen and examined this patient.: Yes I have fully participated in the care of the patient.: Yes I have reviewed all pertinent clinical information, including history, physical exam and plan: Yes Notes (Text): 04/30/17 21:41 37 year old female with past medical history of SLE who had a recent EGD/EUS/ EMR for gastric subepithelial nodule who presented with abdominal pain. CT abd/ pelvis was reviewed as above. She was seen by GI who recommended iv antibiotics , protonix and carafate. She was tolerating liquid diet but complains of not being able to tolerate solid diet. Will scale diet back to liquids for now. GI follow up is requested. Will continue to monitor LFTs closely. Hepatitis panel was negative. Autoimmune workup is in process. Anemia is likely dilutional; will monitor. Reddy Lopez MD Hospitalist.
[2017-05-01] MEDS: Lactated Ringer's 1,000 ML IV SCH (02:00)
[2017-05-01] MEDS: Morphine 2 mg/ml ISec IVP PRN (05:58)
[2017-05-01] MEDS: metroNIDAZOLE IV 500 mg/100 ml 500 MG/100 ML BAG IVPB SCH ×2 (05:59→14:02)
[2017-05-01] MEDS: Sucralfate 1 gm/10 ml Oral Susp UD PO SCH ×2 (05:59→14:02)
[2017-05-01 06:54] LABS: BASO # 0.03 K/mm3 (0.0-2.0); BASO % 0.5 % (0.0-3.0); EOS # 0.3 (0.0-0.7); GRAN # 3.91 (1.4-6.5); GRAN % 63.2 % (50.0-68.0); HEMATOCRIT 33.6 % (36.0-48.0); LYMPH # 1.4 (1.2-3.4); LYMPH % 22.1 % (22.0-35.0); MEAN CELL VOLUME 94.6 fl (80.0-105.0); MEAN CORPUSCULAR HEMOGLOBIN 31.3 pg (25.0-35.0); MONO # 0.6 (0.1-0.6); MONO % 10.2 % (1.0-6.0); RED CELL DISTRIBUTION WIDTH 12.4 % (11.5-14.5); WHITE BLOOD COUNT 6.2 10^3/ul (4.5-11.0)
[2017-05-01 07:46] LABS: ALB/GLOB RATIO 1.1 (1.1-1.8); ALKALINE PHOSPHATASE 48 U/L (38-126); ALT/SGPT 157 U/L (7-56); AST/SGOT 55 U/L (14-36); BILIRUBIN,TOTAL 0.7 mg/dL (0.2-1.3); BLOOD UREA NITROGEN 6 mg/dL (7-21); CALCIUM 8.8 mg/dL (8.4-10.5); CARBON DIOXIDE 28 mmol/L (21-33); CHLORIDE 106 mmol/L (98-107); GFR AFRICAN-AMERICAN > 60; GLUCOSE,RANDOM 84 mg/dL (70-110); POTASSIUM 3.6 mmol/L (3.6-5.0); SODIUM 139 mmol/L (132-148); TOTAL PROTEIN 6.2 g/dL (5.8-8.3)
--- NOTE | 2017-05-01 08:16 | CP.PCM.DIS ---
<Jaleel Cho - Last Filed: 05/01/17 14:21> Provider - Provider Date of Admission: 04/29/17 10:43 Attending physician: Reddy Lopez MD Primary care physician: Samir Mcclelland MD Consults: Dr. Ambrosio Lilly Time Spent in preparation of Discharge (in minutes): 40 Hospital Course - Lab Results Lab Results: Most Recent Lab Values WBC 6.2 10^3/ul (4.5-11.0) 05/01/17 06:30 RBC 3.55 10^6/uL (3.5-6.1) 05/01/17 06:30 Hgb 11.1 g/dL (12.0-16.0) L 05/01/17 06:30 Hct 33.6 % (36.0-48.0) L 05/01/17 06:30 MCV 94.6 fl (80.0-105.0) 05/01/17 06:30 MCH 31.3 pg (25.0-35.0) 05/01/17 06:30 MCHC 33.0 g/dl (31.0-37.0) 05/01/17 06:30 RDW 12.4 % (11.5-14.5) 05/01/17 06:30 Plt Count 152 10^3/uL (120.0-450.0) 05/01/17 06:30 MPV 11.0 fl (7.0-11.0) 05/01/17 06:30 Gran % 63.2 % (50.0-68.0) 05/01/17 06:30 Lymph % (Auto) 22.1 % (22.0-35.0) 05/01/17 06:30 [place] % (Auto) 10.2 % (1.0-6.0) H 05/01/17 06:30 Eos % (Auto) 4.0 % (1.5-5.0) 05/01/17 06:30 Baso % (Auto) 0.5 % (0.0-3.0) 05/01/17 06:30 Gran # 3.91 (1.4-6.5) 05/01/17 06:30 Lymph # 1.4 (1.2-3.4) 05/01/17 06:30 [place] # 0.6 (0.1-0.6) 05/01/17 06:30 Eos # 0.3 (0.0-0.7) 05/01/17 06:30 Baso # 0.03 K/mm3 (0.0-2.0) 05/01/17 06:30 PT 12.5 SECONDS (9.4-12.5) 04/28/17 18:11 INR 1.14 (0.93-1.08) H 04/28/17 18:11 APTT 35.2 Seconds (25.1-36.5) 04/28/17 18:11 Sodium 139 mmol/L (132-148) 05/01/17 06:30 Potassium 3.6 mmol/L (3.6-5.0) 05/01/17 06:30 Chloride 106 mmol/L (98-107) 05/01/17 06:30 Carbon Dioxide 28 mmol/L (21-33) 05/01/17 06:30 Anion Gap 9 (10-20) L 05/01/17 06:30 BUN 6 mg/dL (7-21) L 05/01/17 06:30 Creatinine 0.6 mg/dl (0.7-1.2) L 05/01/17 06:30 Est GFR ( Amer) > 60 05/01/17 06:30 Est GFR (Non-Af Amer) > 60 05/01/17 06:30 Random Glucose 84 mg/dL (70-110) 05/01/17 06:30 Calcium 8.8 mg/dL (8.4-10.5) 05/01/17 06:30 Phosphorus 3.9 mg/dL (2.5-4.5) 04/29/17 06:00 Magnesium 1.5 mg/dL (1.7-2.2) L 04/29/17 06:00 Iron 72 ug/dL (45-180) 04/29/17 08:20 TIBC 298.3 ug/dL (250-450) 04/29/17 08:20 % Saturation 24 (20-55) 04/29/17 08:20 Ferritin 54.7 ng/mL 04/29/17 08:20 Total Bilirubin 0.7 mg/dL (0.2-1.3) 05/01/17 06:30 AST 55 U/L (14-36) H D 05/01/17 06:30 ALT 157 U/L (7-56) H 05/01/17 06:30 Alkaline Phosphatase 48 U/L (38-126) 05/01/17 06:30 Troponin I < 0.01 ng/mL 04/28/17 18:11 Total Protein 6.2 g/dL (5.8-8.3) 05/01/17 06:30 Albumin 3.3 g/dL (3.0-4.8) 05/01/17 06:30 Globulin 2.9 gm/dL 05/01/17 06:30 Albumin/Globulin Ratio 1.1 (1.1-1.8) 05/01/17 06:30 Lipase 42 U/L (23-300) 04/28/17 18:11 Urine Color Yellow (YELLOW) 04/28/17 18:35 Urine Appearance Clear (CLEAR) 04/28/17 18:35 Urine pH 6.5 (4.7-8.0) 04/28/17 18:35 Ur Specific [place] >= 1.030 (1.005-1.035) 04/28/17 18:35 Urine Protein Trace mg/dL (<30 mg/dL) H 04/28/17 18:35 Urine Glucose (UA) Negative mg/dL (NEGATIVE) 04/28/17 18:35 Urine Ketones Negative mg/dL (NEGATIVE) 04/28/17 18:35 Urine Blood Moderate (NEGATIVE) H 04/28/17 18:35 Urine Nitrate Negative (NEGATIVE) 04/28/17 18:35 Urine Bilirubin Negative (NEGATIVE) 04/28/17 18:35 Urine Urobilinogen 0.2 E.U./dL (<1 E.U./dL) 04/28/17 18:35 Ur Leukocyte Esterase Negative Mick/uL (NEGATIVE) 04/28/17 18:35 Urine RBC 5 - 10 /hpf (0-2) 04/28/17 18:35 Urine WBC 2 - 5 /hpf (0-6) 04/28/17 18:35 Ur Epithelial Cells 4 - 5 /hpf (0-5) 04/28/17 18:35 Urine Bacteria Rare (NEG) 04/28/17 18:35 Hepatitis A IgM Ab Negative (NEGATIVE) 04/29/17 07:00 Hep Bs Antigen Negative (NEGATIVE) 04/29/17 07:00 Hep B Core IgM Ab Negative (NEGATIVE) 04/29/17 07:00 Hepatitis C Antibody Negative (NEGATIVE) 04/29/17 07:00 HIV 1&2 Antibody Screen Negative (NEGATIVE) 04/29/17 12:15 - Hospital Course Hospital Course: 37 year old [facility] with past medical history of SLE [facility]/EUS/EMR for gastric subepithelial nodule. 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 The patient's diet was advanced as tolerated. She developed some diarrhea on on the day of discharge, but was without leukocytosis, fever, or abdominal discomfort; furthermore, her C. Difficile toxin testing was negative. The patients elevated LFTs trended down nicely during her stay. The patient was discharged with levaquin/metronidazole for 5 days, protonix BID, and carafate QID. - Date & Time of H&P Date of H&P: 05/01/17 Time of H&P: 08:16 Discharge Exam - Head Exam Head Exam: ATRAUMATIC, NORMOCEPHALIC - Eye Exam Eye Exam: EOMI, Normal appearance, PERRL - ENT Exam ENT Exam: Mucous Membranes Moist, Normal Oropharynx - Neck Exam Neck exam: Normal Inspection - Respiratory Exam Respiratory Exam: Clear to PA & Lateral, NORMAL BREATHING PATTERN - Cardiovascular Exam Cardiovascular Exam: RRR, +S1, +S2 - GI/Abdominal Exam GI & Abdominal Exam: Normal Bowel Sounds, Soft. absent: Guarding - Extremities Exam Extremities exam: normal inspection, pedal pulses present - Back Exam Back exam: NORMAL INSPECTION. absent: CVA tenderness (L), CVA tenderness (R) - Neurological Exam Neurological exam: Alert, CN II-XII Intact, Oriented x3 - Psychiatric Exam Psychiatric exam: Normal Affect, Normal Mood - Skin Skin Exam: Normal Color, Warm Discharge Plan - Discharge Medications Prescriptions: Levofloxacin [Levaquin] 500 mg PO DAILY 5 Days #5 tablet metroNIDAZOLE [Flagyl] 500 mg PO Q8H 5 Days #15 tab Pantoprazole Sodium [Protonix] 40 mg PO BID 10 Days #20 ect Sucralfate [Carafate] 1 gm PO QID 10 Days #40 tab - Follow Up Plan Condition: FAIR Disposition: HOME/ ROUTINE Instructions: Abdominal Pain (ED) Additional Instructions: 1) Patient to take any prescriptions as directed. 2) Patient to follow-up with GI clinic in one week. 3) Patient to follow up with Dr. Mcclelland within one week of discharge. 4) Patient to return to the nearest Emergency Room for any worsening of symptoms. Referrals: Samir Mcclelland MD [Primary Care Provider] - <Reddy Lopez - Last Filed: 05/01/17 14:28> Provider - Provider Date of Admission: 04/29/17 10:43 Attending physician: Reddy Lopez MD Primary care physician: Samir Mcclelland MD Hospital Course - Lab Results Lab Results: Micro Results 05/01/17 11:20 Stool C. difficile Antigen & Toxin A,B (M - Final Most Recent Lab Values WBC 6.2 10^3/ul (4.5-11.0) 05/01/17 06:30 RBC 3.55 10^6/uL (3.5-6.1) 05/01/17 06:30 Hgb 11.1 g/dL (12.0-16.0) L 05/01/17 06:30 Hct 33.6 % (36.0-48.0) L 05/01/17 06:30 MCV 94.6 fl (80.0-105.0) 05/01/17 06:30 MCH 31.3 pg (25.0-35.0) 05/01/17 06:30 MCHC 33.0 g/dl (31.0-37.0) 05/01/17 06:30 RDW 12.4 % (11.5-14.5) 05/01/17 06:30 Plt Count 152 10^3/uL (120.0-450.0) 05/01/17 06:30 MPV 11.0 fl (7.0-11.0) 05/01/17 06:30 Gran % 63.2 % (50.0-68.0) 05/01/17 06:30 Lymph % (Auto) 22.1 % (22.0-35.0) 05/01/17 06:30 [place] % (Auto) 10.2 % (1.0-6.0) H 05/01/17 06:30 Eos % (Auto) 4.0 % (1.5-5.0) 05/01/17 06:30 Baso % (Auto) 0.5 % (0.0-3.0) 05/01/17 06:30 Gran # 3.91 (1.4-6.5) 05/01/17 06:30 Lymph # 1.4 (1.2-3.4) 05/01/17 06:30 [place] # 0.6 (0.1-0.6) 05/01/17 06:30 Eos # 0.3 (0.0-0.7) 05/01/17 06:30 Baso # 0.03 K/mm3 (0.0-2.0) 05/01/17 06:30 PT 12.5 SECONDS (9.4-12.5) 04/28/17 18:11 INR 1.14 (0.93-1.08) H 04/28/17 18:11 APTT 35.2 Seconds (25.1-36.5) 04/28/17 18:11 Sodium 139 mmol/L (132-148) 05/01/17 06:30 Potassium 3.6 mmol/L (3.6-5.0) 05/01/17 06:30 Chloride 106 mmol/L (98-107) 05/01/17 06:30 Carbon Dioxide 28 mmol/L (21-33) 05/01/17 06:30 Anion Gap 9 (10-20) L 05/01/17 06:30 BUN 6 mg/dL (7-21) L 05/01/17 06:30 Creatinine 0.6 mg/dl (0.7-1.2) L 05/01/17 06:30 Est GFR ( Amer) > 60 05/01/17 06:30 Est GFR (Non-Af Amer) > 60 05/01/17 06:30 Random Glucose 84 mg/dL (70-110) 05/01/17 06:30 Calcium 8.8 mg/dL (8.4-10.5) 05/01/17 06:30 Phosphorus 3.9 mg/dL (2.5-4.5) 04/29/17 06:00 Magnesium 1.5 mg/dL (1.7-2.2) L 04/29/17 06:00 Iron 72 ug/dL (45-180) 04/29/17 08:20 TIBC 298.3 ug/dL (250-450) 04/29/17 08:20 % Saturation 24 (20-55) 04/29/17 08:20 Ferritin 54.7 ng/mL 04/29/17 08:20 Total Bilirubin 0.7 mg/dL (0.2-1.3) 05/01/17 06:30 AST 55 U/L (14-36) H D 05/01/17 06:30 ALT 157 U/L (7-56) H 05/01/17 06:30 Alkaline Phosphatase 48 U/L (38-126) 05/01/17 06:30 Troponin I < 0.01 ng/mL 04/28/17 18:11 Total Protein 6.2 g/dL (5.8-8.3) 05/01/17 06:30 Albumin 3.3 g/dL (3.0-4.8) 05/01/17 06:30 Globulin 2.9 gm/dL 05/01/17 06:30 Albumin/Globulin Ratio 1.1 (1.1-1.8) 05/01/17 06:30 Lipase 42 U/L (23-300) 04/28/17 18:11 Urine Color Yellow (YELLOW) 04/28/17 18:35 Urine Appearance Clear (CLEAR) 04/28/17 18:35 Urine pH 6.5 (4.7-8.0) 04/28/17 18:35 Ur Specific [place] >= 1.030 (1.005-1.035) 04/28/17 18:35 Urine Protein Trace mg/dL (<30 mg/dL) H 04/28/17 18:35 Urine Glucose (UA) Negative mg/dL (NEGATIVE) 04/28/17 18:35 Urine Ketones Negative mg/dL (NEGATIVE) 04/28/17 18:35 Urine Blood Moderate (NEGATIVE) H 04/28/17 18:35 Urine Nitrate Negative (NEGATIVE) 04/28/17 18:35 Urine Bilirubin Negative (NEGATIVE) 04/28/17 18:35 Urine Urobilinogen 0.2 E.U./dL (<1 E.U./dL) 04/28/17 18:35 Ur Leukocyte Esterase Negative Mick/uL (NEGATIVE) 04/28/17 18:35 Urine RBC 5 - 10 /hpf (0-2) 04/28/17 18:35 Urine WBC 2 - 5 /hpf (0-6) 04/28/17 18:35 Ur Epithelial Cells 4 - 5 /hpf (0-5) 04/28/17 18:35 Urine Bacteria Rare (NEG) 04/28/17 18:35 Hepatitis A IgM Ab Negative (NEGATIVE) 04/29/17 07:00 Hep Bs Antigen Negative (NEGATIVE) 04/29/17 07:00 Hep B Core IgM Ab Negative (NEGATIVE) 04/29/17 07:00 Hepatitis C Antibody Negative (NEGATIVE) 04/29/17 07:00 HIV 1&2 Antibody Screen Negative (NEGATIVE) 04/29/17 12:15 Attending/Attestation - Attestation I have personally seen and examined this patient.: Yes I have fully participated in the care of the patient.: Yes I have reviewed all pertinent clinical information, including history, physical exam and plan: Yes Notes (Text): 05/01/17 14:27 37 year old female with past medical history of SLE who had a recent EGD/EUS/ EMR for gastric subepithelial nodule who presented with abdominal pain. CT abd/ pelvis was reviewed as above. She was seen by GI who recommended iv antibiotics , protonix and carafate. Her symptoms improved and her diet was advanced which she tolerated. She had transaminitis which also improved. Hepatitis panel was negative and autoimmune workup was in process. She is discharged home today to follow up with her pmd. Follow up with GI to monitor LFTs and follow up on labs/pathology. Reddy Lopez MD Hospitalist.
[2017-05-01 08:30] VITALS: BP 106/69; PULSE 84; RESP 20; TEMP 99.3; O2SAT 96
[2017-05-01] MEDS: levoFLOXacin 500 mg in D5W 500 MG/100 ML BAG IVPB SCH (10:36)
[2017-05-03 12:58] LABS: LKM-1 Ab (IgG) <=20.0 U (<=20.0)
== END 2017-05-01 16:25 | disposition home or self-care (01) | DRG 463 ==
LOC: ED 17:32 → ERH 19:32 → 3RNO 21:26 → OBSVTOIN 04-29 10:43
PROVIDERS: ADMIT Hospitalist; ATTEND Internal Medicine
DX: G89.18 Other acute postprocedural pain (principal); R10.13 Epigastric pain; M32.9 Systemic lupus erythematosus, unspecified; K31.89 Other diseases of stomach and duodenum; D64.9 Anemia, unspecified; R74.0 Nonspecific elevation of levels of transaminase and lactic acid dehydrogenase [LDH]; Z87.891 Personal history of nicotine dependence

== ENCOUNTER 2017-07-14 06:53 | Day surgery (SDC) | payer MEDICAID ==
[2017-07-14 07:43] VITALS: RESP 14
[2017-07-14] MEDS ORDERED: Propofol 10 mg/ml Inj (20 ML) ONE ×2 (08:48→08:58)
[2017-07-14] MEDS ORDERED: Sodium Chloride 0.9% 1,000 ML IV SCH (09:30)
[2017-07-14 10:01] VITALS: O2SAT 100
[2017-07-14 10:41] VITALS: BP 114/70; PULSE 64; TEMP 97
== END 2017-07-14 10:42 | disposition home or self-care (01) ==
LOC: ENDO 06:53
PROVIDERS: ATTEND Internal Medicine
DX: K64.8 Other hemorrhoids (principal); K86.9 Disease of pancreas, unspecified; L93.0 Discoid lupus erythematosus; M41.9 Scoliosis, unspecified; M87.9 Osteonecrosis, unspecified
CPT/HCPCS: 45380; 84703; 87045; 87177; 87209; 87324; 88305; J2405; J2704; J3010; J7040 ×2